=== PATIENT | male | born 1990 | race African-American/Black ===

== ENCOUNTER 2020-09-22 15:14 | Emergency (ER) | payer OTHER ==
[~2020-09-22] VITALS: Ht 188 cm; Wt 127.9 kg
[2020-09-22] MEDS ORDERED: ALEV220T22 PO (15:23)
[2020-09-22] MEDS ORDERED: KETOROLAC 30 MG/ML 1ML VIAL IV ONE (16:40)
[2020-09-22] MEDS ORDERED: diphenhydrAMINE 50MG/ML VIAL (J1200) IV ONE (16:40)
[2020-09-22] MEDS ORDERED: PROCHLORPERAZINE 5 MG TAB (S0183) PO ONE (16:40)
[2020-09-22] MEDS ORDERED: NS 1,000 ML IV ONE (16:40)
[2020-09-22 18:57] VITALS: BP 131/83
== END 2020-09-22 19:02 | disposition home or self-care (01) ==
LOC: M ED 15:14
DX: G43.909 Migraine, unspecified, not intractable, without status migrainosus (principal); E86.0 Dehydration
CPT/HCPCS: 96361; 96374; 96375; 99284; J1200; J1885